=== PATIENT | female | born 1950 | race Caucasian/White ===

== ENCOUNTER 2024-02-29 11:26 | Emergency (ER) | payer OTHER, MEDICARE ==
[~2024-02-29] VITALS: Ht 177.8 cm; Wt 75.9 kg
[2024-02-29] MEDS: NEOMY SULF/BACITRA/POLYMYXIN B 1 EACH PACKET TP ONE (12:44)
[2024-02-29] MEDS: CEPHALEXIN 500 MG CAPSULE PO ONE (12:44)
[2024-02-29] MEDS: LIDOCAINE HCL 1% 20 ML VIAL INJ SCH (12:48)
[2024-02-29] MEDS: ACETAMINOPHEN 500 MG TABLET PO ONE (12:48)
[2024-02-29] MEDS: TETANUS/DIPHTHERIA TOXOID [ADULT] 0.5 ML VIAL IM ONE (12:49)
[2024-02-29] MEDS ORDERED: CEPH500B PO (13:24)
[2024-02-29] MEDS ORDERED: IBUP-2070 PO (13:24)
[2024-02-29 14:22] VITALS: BP 139/70; PULSE 80; RESP 19; O2SAT 98
== END 2024-02-29 14:22 | disposition home or self-care (01) ==
LOC: EDH 11:26
DX: S62.632B Displaced fracture of distal phalanx of right middle finger, initial encounter for open fracture (principal); S60.131A Contusion of right middle finger with damage to nail, initial encounter; W23.0XXA Caught, crushed, jammed, or pinched between moving objects, initial encounter; Y93.89 Activity, other specified; Y92.098 Other place in other non-institutional residence as the place of occurrence of the external cause; Y99.8 Other external cause status
CPT/HCPCS: 11760; 73130; 90471; 90714

== ENCOUNTER 2024-03-22 11:03 | Emergency (ER) | payer OTHER, MEDICARE ==
[~2024-03-22] VITALS: Ht 177.8 cm; Wt 73.9 kg
[~2024-03-22 11:03] MED LIST: CEPH500B PO; IBUP-2070 PO
[2024-03-22 13:28] VITALS: BP 145/68; PULSE 70; RESP 16; O2SAT 99
== END 2024-03-22 13:29 | disposition home or self-care (01) ==
LOC: EDH 11:03
DX: Z47.89 Encounter for other orthopedic aftercare (principal); E11.9 Type 2 diabetes mellitus without complications; F03.90 Unspecified dementia, unspecified severity, without behavioral disturbance, psychotic disturbance, mood disturbance, and anxiety; Z79.899 Other long term (current) drug therapy; Z48.02 Encounter for removal of sutures
CPT/HCPCS: 99282